=== PATIENT | female | born 1940 | race African-American/Black ===

== ENCOUNTER → 2016-09-09 | Outpatient (CLI) | payer OTHER ==
[~2016-09-09] MED LIST: CLOBETASOL EMOL15 GM TP; HYDROCHLOROTHIA25 M2 PO; LEVOTHYROXIN0.075 MG PO; LOSARTAN POTAS100 MG PO; TOPROL XL50 MG PO
--- NOTE | ~2016-09-09 | 2DMMODE ---
[facility] I AND [employer] [address] 2 D/M-MODE ECHOCARDIOGRAM Name: ALEKSANDRA LAWRENCE Room #: REG CL [facility]#: [id number] Admission: 09/09/16 Attend Phys: Keven Snyder Discharge: Date of : 44 Date of Service: 09/09/16 1119 Report #: [id number] THIS REPORT FOR: //name// Transthoracic Echocardiography Ordering physician: Polly Ferguson Referring physician: Polly Ferguson Hospice Coordinator: Lexus Plascencia Indications/History: Pulmonary HTN BP: 162 / HR: 51bpm Height: 64in Weight: 134.7lb 90 Study data: M-mode, complete 2D, complete spectral Doppler, and color Doppler. Location: Echo laboratory. Routine. Image quality was adequate. 2D measurements Normal Normal LVID ED 52mm 36-57 IVS ED 11.3mm 6-11 LVID ES 24.2mm 23-40 LVPW ED 10.1mm 6-11 LA volume 32ml/m2 16-28 AoRoot diam 30.4mm 21-37 index ED LVOT diameter 20mm 18-23 Findings: Left ventricle: The cavity size was normal. Wall thickness was at the upper limits of normal. Systolic function was normal. The estimated ejection fraction was in the range of 60% to 65%. Wall motion was normal. Right ventricle: The cavity size was normal. Systolic function was normal. Right atrium: The atrium was normal in size. Left atrium: The atrium was mildly dilated. Volume index: 32ml/m2 (S). Aortic valve: Mildly thickened leaflets. Doppler: There was no stenosis. No regurgitation. Peak velocity: 153.8cm/s (S). [address] [address] 2 D/M-MODE ECHOCARDIOGRAM Name: ALEKSANDRA LAWRENCE Room #: REG M.R.#: [id number] Admission: 09/09/16 Attend Phys: GriffinStormy Keven Fiore Discharge: Date of : 44 Date of Service: 09/09/16 1119 Report #: [id number] Mitral valve: Structurally normal valve. Doppler: There was no evidence for stenosis. No regurgitation. Peak E-wave velocity: 59.4cm/s. Peak A-wave velocity: 74cm/s. Tricuspid valve: Structurally normal valve. Doppler: There was no evidence for stenosis. Mild regurgitation. Regurgitant peak velocity: 266.8cm/s. Peak RV-RA gradient: 28mm Hg (S). Pulmonic valve: Structurally normal valve. Doppler: There was no evidence for stenosis. Mild to moderate regurgitation. Pericardium: There was no pericardial effusion. Aorta: Aortic root: The aortic root was normal in size. Pulmonary artery: Systolic pressure was estimated to be 33mm Hg. Diastolic function: Doppler parameters are consistent with abnormal left ventricular relaxation (grade 1 diastolic dysfunction). Systemic veins: Inferior vena cava: The vessel was normal in size; the respirophasic diameter changes were in the normal range (= 50%). Conclusions 1. Left ventricle: The cavity size was normal. Wall thickness was at the upper limits of normal. Systolic function was normal. The estimated ejection fraction was in the range of 60% to 65%. Wall motion was normal. Doppler parameters are consistent with abnormal left ventricular relaxation (grade 1 diastolic dysfunction). 2. Aortic valve: Mildly thickened leaflets. There was no stenosis. No regurgitation. 3. Mitral valve: Structurally normal valve. No regurgitation. 4. Pulmonary arteries: Systolic pressure was estimated to be 33mm Hg. 5. Pericardium, extracardiac: There was no pericardial effusion. <ELECTRONICALLY SIGNED> By: Harry Ga MD, FACC 09/09/16 1239 1119 1239 Harry Ga MD, FAC /deena
== END ==
LOC: CV 09-08 09:44
DX: I27.2 Other secondary pulmonary hypertension (principal)

== ENCOUNTER → 2017-02-15 | Outpatient (CLI) | payer OTHER | LOC: CAT 02-11 10:01 | DX: J47.9 Bronchiectasis, uncomplicated (principal); J84.10 Pulmonary fibrosis, unspecified; R91.8 Other nonspecific abnormal finding of lung field ==

== ENCOUNTER 2017-06-04 04:28 | Emergency (ER) | payer OTHER ==
[~2017-06-04] VITALS: Ht 165.1 cm; Wt 61.2 kg
--- NOTE | ~2017-06-04 | EKG ---
[address] [address] ELECTROCARDIOGRAM REPORT Name: NOAH LAWRENCENITA Room #: DEP Chan#: [id number] Admission: 06/04/17 Attend Phys: Discharge: 06/04/17 Date of : 44 Report #: [id number] THIS REPORT FOR: //name// [facility] ED Test Date: 2017-06-04 Test Time: 04:52:57 Pat Name: ALEKSANDRA LAWRENCE Department: Room: Gender: F Gis Manager: : 1940 Requested By: Ronnie Lynch Order Number: [id number] MD: Cristo Napier Measurements Intervals [place] Rate: 50 P: 25 MS: 213 QRS: 8 QRSD: 106 T: 56 QT: 444 QTc: 405 Interpretive Statements Sinus rhythm Borderline prolonged MS interval Left atrial enlargement Left ventricular hypertrophy No previous ECG available for comparison Electronically Signed On 06-04-2017 13:29:45 CDT by Cristo Napier [email or web address] <ELECTRONICALLY SIGNED> By: Cristo Napier MD 06/04/17 1329 0452 0452 Cristo Napier MD /NOE
[2017-06-04] MEDS ORDERED: CARDIZEM CD240 MG PO (04:37)
[2017-06-04] MEDS ORDERED: CLONIDINE0.1 PO (04:38)
[2017-06-04 04:56] LABS: HEMATOCRIT 42.1 % (37.0-47.0); HEMOGLOBIN 14.1 gm/dL (12.0-15.0); MCH 30.3 pg (26.0-34.0); MCHC 33.4 g/dL (28.0-37.0); MCV 90.6 fL (80.0-100.0); RBC 4.65 mil/uL (4.20-5.00); RDW 14.1 % (10.5-14.5); WBC 6.3 thou/uL (4.0-11.0)
[2017-06-04 05:11] LABS: ANION GAP 7 mmol/L (7-16); BUN 16 mg/dL (7-18); CALCIUM 10.3 mg/dL (8.5-10.1); CHLORIDE 100 mmol/L (98-107); CO2 30 mmol/L (21-32); CREATININE 0.7 mg/dL (0.6-1.0); GLUCOSE 105 mg/dL (74-106); POTASSIUM 3.3 mmol/L (3.5-5.1); SODIUM 137 mmol/L (136-145)
[2017-06-04 05:20] LABS: TROPONIN-I < 0.04 ng/mL (<0.04-0.07)
[2017-06-04 05:27] LABS: URINE BILIRUBIN NEGATIVE (Negative); URINE BLOOD 1+ (Negative); URINE COLOR YELLOW; URINE GLUCOSE-RANDOM* NEGATIVE (Negative); URINE KETONES NEGATIVE (Negative); URINE LEUKOCYTES-REFLEX NEGATIVE (Negative); URINE PROTEIN (DIPSTICK) NEGATIVE (Negative); URINE UROBILINOGEN 0.2 E.U./dl (0.2-1.0)
[2017-06-04 05:43] LABS: SQUAMOUS >10 Many /LPF (0-3)
[2017-06-04 05:44] LABS: CASTS None Seen /LPF (None Seen); CRYSTALS None Seen /LPF (None Seen); URINE RBC 0-2 Rare /HPF (0-2); URINE WBC-REFLEX 0-5 Rare /HPF (0-5)
[2017-06-04 05:52] VITALS: BP 179/87
== END 2017-06-04 05:45 | disposition home or self-care (01) ==
LOC: ER 04:28
PROVIDERS: Emergency Medicine
DX: I10 Essential (primary) hypertension (principal); E03.9 Hypothyroidism, unspecified

== ENCOUNTER 2019-03-12 06:54 | Emergency (ER) | payer OTHER ==
[~2019-03-12] VITALS: Ht 162.6 cm; Wt 61.2 kg
[~2019-03-12 06:54] MED LIST changes: +CARDIZEM CD240 MG PO; +CLONIDINE0.1 PO
[2019-03-12 07:39] LABS: URINE BILIRUBIN NEGATIVE (Negative); URINE BLOOD 1+ (Negative); URINE CLARITY CLEAR; URINE COLOR YELLOW; URINE GLUCOSE-RANDOM* NEGATIVE (Negative); URINE KETONES NEGATIVE (Negative); URINE LEUKOCYTES-REFLEX NEGATIVE (Negative); URINE NITRITE-REFLEX NEGATIVE (Negative); URINE PROTEIN (DIPSTICK) NEGATIVE (Negative); URINE UROBILINOGEN 0.2 E.U./dl (0.2-1.0)
[2019-03-12 07:52] LABS: SQUAMOUS >10 Many /LPF (0-3)
[2019-03-12 07:53] LABS: BACTERIA-REFLEX 1-9 Few /HPF (None Seen); CASTS None Seen /LPF (None Seen); CRYSTALS None Seen /LPF (None Seen); URINE RBC 0-2 Rare /HPF (0-2); URINE WBC-REFLEX 0-5 Rare /HPF (0-5)
[2019-03-12 07:59] LABS: ABSOLUTE NEUTROPHILS 4.7 thou/uL (1.4-8.2); BASOPHILS 1.6 % (0.0-2.0); EOSINOPHILS 1.7 % (0.0-3.0); HEMATOCRIT 40.7 % (37.0-47.0); HEMOGLOBIN 13.6 gm/dL (12.0-15.0); LYMPHOCYTES 21.4 % (24.0-44.0); MCH 30.8 pg (26.0-34.0); MCHC 33.4 g/dL (28.0-37.0); MCV 92.2 fL (80.0-100.0); PLATELET COUNT 307 thou/uL (150-400); POLYS 66.3 % (36.0-66.0); RBC 4.41 mil/uL (4.20-5.00); RDW 14.4 % (10.5-14.5); WBC 7.2 thou/uL (4.0-11.0)
[2019-03-12 08:04] LABS: CALCIUM 7.9 mg/dL (8.5-10.1); CREATININE 0.7 mg/dL (0.6-1.0); POTASSIUM 3.4 mmol/L (3.5-5.1)
[2019-03-12 08:10] LABS: ALBUMIN 3.7 g/dL (3.4-5.0); TOTAL BILIRUBIN 0.7 mg/dL (<0.1-1.0); TOTAL PROTEIN 8.2 g/dL (6.4-8.2)
[2019-03-12 08:32] VITALS: BP 153/84
--- NOTE | 2019-03-12 19:54 | EKG ---
[place] [address] [facility] [place] [address] ELECTROCARDIOGRAM REPORT Name: NOAH LAWRENCENITA Room #: DEP MONIQUE Giles#: [id number] ������������������ Admission: 03/12/19 ������������������ Attend Phys: Discharge: 03/12/19 ������������������ Date of : 44 Report #: [id number] ����������������������������������������������������������������� [id number] THIS REPORT FOR: //name// [facility] ED Test Date: 2019-03-12 Test Time: 08:15:57 Pat Name: ALEKSANDRA LAWRENCE Department: Room: Gender: F Informaticist: alisa : 1940 Requested By: Rohan Ureña Order Number: [id number] MD: Cristo Napier Measurements Intervals [place] Rate: 47 P: 41 OK: 204 QRS: -10 QRSD: 111 T: 25 QT: 433 QTc: 383 Interpretive Statements Sinus bradycardia Probable left atrial enlargement RSR' in V1 or V2, probably normal variant Left ventricular hypertrophy Compared to ECG 06/04/2017 04:52:57 RSR' in V1 or V2 now present Sinus rhythm no longer present Electronically Signed On 03-12-2019 19:54:20 CDT by Cristo Napier [email or web address] ��������������������������������������������� <ELECTRONICALLY SIGNED> ���������������������������������������� By: Cristo Napier MD ��������������������������������������������� 03/12/194 4 4 Cristo Napier MD /EPI
== END 2019-03-12 08:32 | disposition home or self-care (01) ==
LOC: ER 06:54
PROVIDERS: Emergency Medicine
DX: I10 Essential (primary) hypertension (principal); E03.9 Hypothyroidism, unspecified

== ENCOUNTER → 2019-06-12 | Outpatient (CLI) | payer OTHER | LOC: RAD 01:30 | DX: Z12.31 Encounter for screening mammogram for malignant neoplasm of breast (principal) ==

== ENCOUNTER → 2019-09-15 | Outpatient (CLI) | payer OTHER ==
[~2019-09-15] VITALS: Ht 162.6 cm; Wt 61.2 kg
[~2019-09-15] MED LIST changes: +CARDIZEM CD240 M1 PO; -CARDIZEM CD240 MG PO; -CLOBETASOL EMOL15 GM TP; +CLOBETASOL EMOL15 GM VAG; +CLONIDINE HCL0.2 M2 PO; -CLONIDINE0.1 PO; +KLOR-CON 10 ER10 MEQ PO; -LEVOTHYROXIN0.075 MG PO; +SYNTHROID75 MCG PO; +WOMEN'S 50 PLU1 EACH PO
--- NOTE | 2019-09-15 17:40 | P ---
[facility] [place] [address] PROCEDURE REPORT Name: ALEKSANDRA LAWRENCE Room #: REG [facility].#: [id number] Admission: 09/15/19 Attend Phys: Zackary Dias MD Discharge: Date of : 44 Report #: [id number] THIS REPORT FOR: //name// CC: Abhilash Dias DATE OF SERVICE: 09/15/2019 OUTPATIENT COLONOSCOPY REPORT BRIEF HISTORY: The patient is a 79-year-old woman with a history of colon polyps. She reports she recently had a positive Cologuard and presents for colonoscopy due to positive Cologuard. PREOPERATIVE DIAGNOSES: High risk screening due to positive Cologuard and history of colon polyps. POSTOPERATIVE DIAGNOSES: 1. A 4-5 mm polyp, proximal ascending colon. 2. Small internal hemorrhoids. MEDICATIONS: Deep sedation with propofol per anesthesia. SPECIMENS: Polyp from proximal ascending colon. ESTIMATED BLOOD LOSS: 3 mL. PROCEDURE: Colonoscopy to cecum and terminal ileum with biopsy. FINDINGS: Prior to propofol sedation, procedure of colonoscopy discussed with the patient as well as potential risks and its complications. She indicates she understands and desires to proceed. DESCRIPTION OF PROCEDURE: With the patient in left lateral decubitus position, digital examination was completed, which revealed no abnormalities. Subsequently, the Olympus video colonoscope was introduced in the rectum, advanced under direct vision to the cecum. Done with minimal difficulty. Cecum was identified by the ileocecal valve and the appendiceal orifice. I was able to visualize the distal segment of terminal ileum, which was inspected and noted to be unremarkable. At that point, the scope was slowly withdrawn and careful circumferential views obtained including retroflexion of the scope in the ascending colon. Upon slow withdrawal of the scope, the prep was noted to be limited in some areas. We irrigated extensively and suctioned and overall obtained a good prep after cleanup. The mucosa was within normal limits, normal vascular pattern, normal light reflex. No abnormalities were noted until the [facility] [address] [place] [address] PROCEDURE REPORT Name: ALEKSANDRA LAWRENCE Room #: REG [facility].#: [id number] Admission: 09/15/19 Attend Phys: Zackary Dias MD Discharge: Date of : 44 Report #: [id number] proximal ascending colon was reached, at which point a 4-5 mm polyp was seen and removed with biopsy forceps. Scope was further withdrawn and no additional neoplastic lesions were seen. The remainder of the exam was unremarkable, down to the rectum. However, upon retroflexion, small hemorrhoids were seen. The scope was withdrawn. The patient tolerated the procedure well. CONDITION OF THE PATIENT UPON DISCHARGE: Following procedure, the patient drowsy, aroused, conversant and will be discharged home when fully ambulatory. INSTRUCTIONS TO THE PATIENT AND FAMILY AT THE TIME OF DISCHARGE: One small polyp removed as described above. We will follow up on the path. It does look like an adenoma. In view of her history of polyps and finding of polyps today, I suggest return in 5 years for high risk screening colonoscopy. Since she has had colon polyps, Cologuard is not an approved screening method due to her history of colon polyps. Last colonoscopy was 5 years ago. Withdrawal time from the cecum including cleanup was 19 minutes and 3 seconds. <ELECTRONICALLY SIGNED> By: Zackary Dias MD 09/15/19 1740 1017 1415 Zackary Dias MD /nt
--- NOTE | 2019-09-18 16:07 | PATH ---
[facility] [address] [place] [address] PATHOLOGY RPT PROCEDURE Name: ALEKSANDRA LAWRENCE Room #: REG [facility]..#: [id number] Admission: 09/15/19 Date of : 44 Discharge: Report #: [id number] Path Case #: [id number] [facility] Accession Number: [id number] . 01 Material submitted: . colon - POLYP AT ASCENDING COLON. Modifiers: ascending . 01 Clinical history: . Blood in stool, history of polyps. . 02 Diagnosis: Polyp, ascending colon, endoscopic biopsy: - Tubular adenoma. - Negative for high-grade dysplasia. (IUV:pit 09/18/2019) QTP 09/18/2019 1345 Local . 02 Electronically signed: . Silvana Crawford MD, Pathologist NPI- [id number] . 01 Gross description: . Received in formalin labeled "Hishaw, Georgann, polyp at ascending" is a 0.4 x 0.4 x 0.1 cm aggregate of lawrence-brown mucosa fragments. The specimen is submitted in A1. ([facility] [place]; 09/17/2019) [facility] 09/17/2019 1119 Local . 02 Pathologist provided ICD-10: D12.2 . 02 CPT . 906465 Specimen Comment: A courtesy copy of this report has been sent to [phone], [phone]- Specimen Comment: [id number] Specimen Comment: Report sent to and Performed at: [address], [place] [id number] MD Eliazar Cabello MD Phone: [phone] Performed at: [address] [id number] MD Silvana Crawford MD Phone: [phone]
== END | disposition home or self-care (01) ==
LOC: GI 09-08 12:23
DX: R19.5 Other fecal abnormalities (principal); D12.2 Benign neoplasm of ascending colon; K64.8 Other hemorrhoids; I10 Essential (primary) hypertension; E03.9 Hypothyroidism, unspecified; Z98.890 Other specified postprocedural states; Z86.010 Personal history of colon polyps; Z87.01 Personal history of pneumonia (recurrent); Z79.899 Other long term (current) drug therapy
CPT/HCPCS: 62110; 62900

== ENCOUNTER → 2020-12-16 | Outpatient (CLI) | payer OTHER | LOC: BC 09:45 | PROVIDERS: ATTEND Obstetrics & Gynecology | DX: Z12.31 Encounter for screening mammogram for malignant neoplasm of breast (principal) ==

== ENCOUNTER 2021-08-30 22:33 | Emergency (ER) | payer OTHER ==
[~2021-08-30] VITALS: Ht 162.6 cm; Wt 60.3 kg
[2021-08-30 23:41] LABS: ABSOLUTE NEUTROPHILS 4.1 thou/uL (1.4-8.2); BASOPHILS 1.3 % (0.0-2.0); HEMATOCRIT 39.1 % (37.0-47.0); HEMOGLOBIN 12.8 gm/dL (12.0-15.0); LYMPHOCYTES 23.6 % (24.0-44.0); MCH 30.9 pg (26.0-34.0); MCHC 32.8 g/dL (28.0-37.0); MCV 94.1 fL (80.0-100.0); MONOCYTES 10.8 % (1.0-8.0); PLATELET COUNT 314 thou/uL (150-400); POLYS 63.3 % (36.0-66.0); RBC 4.15 mil/uL (4.20-5.00); RDW 14.4 % (10.5-14.5); WBC 6.4 thou/uL (4.0-11.0)
[2021-08-30] MEDS ORDERED: COZAAR 25 MG TA25 M2 PO (23:48)
[2021-08-30 23:59] LABS: CALCIUM 9.2 mg/dL (8.5-10.1); CREATININE 0.6 mg/dL (0.6-1.0); POTASSIUM 3.5 mmol/L (3.5-5.1)
[2021-08-31 00:48] VITALS: BP 137/83
== END 2021-08-31 00:48 | disposition home or self-care (01) ==
LOC: ER 22:33
PROVIDERS: Emergency Medicine
DX: I10 Essential (primary) hypertension (principal); E03.9 Hypothyroidism, unspecified; Z90.89 Acquired absence of other organs; Z98.890 Other specified postprocedural states; Z79.899 Other long term (current) drug therapy

== ENCOUNTER 2021-09-07 10:08 | Emergency (ER) | payer OTHER ==
[~2021-09-07] VITALS: Ht 162.6 cm; Wt 60.3 kg
--- NOTE | ~2021-09-07 | EMS ---
[address] [address] EMS Patient Care Report Name: ALEKSANDRA LAWRENCE Room #: [facility] MONIQUE Giles#: [id number] Admission: 09/07/21 Attend Phys: Discharge: 09/07/21 Date of : 44 Report #: [id number] THIS REPORT FOR: //name// Report Transmitted: 09/09/2021 10:33 EMS Care Summary [place], [place]/[facility] Incident [id number] @ 09/07/2021 09:31 Incident Location [address] [place] [address] Patient ALEKSANDRA LAWRENCE Female, 81 Years 1940 Patient Address Patient History Hypertension (HTN),Hypothyroidism, Patient Allergies No known allergies, Patient Medications Losartan, Hydrochlorothiazide (Hctz), Clonidine, Diltiazem, Levothyroxine, Chief Complaint HTN Disposition Transported No Lights/[place] Dispatch Reason Sick Person Transported To [facility] Narrative UPON ARRIVAL WE FOUND OUR ANXIOUS 81 YEAR OLD FEMALE PATIENT, WITH A HX OF HTN, SITTING IN THE FRONT ROOM OF A RESIDENCE COMPLAINING OF POORLY CONTROLLED HTN WITH INTERMITTENT PARESTHESIA IN ALL 4 EXTREMITIES X 1 WEEK DESPITE COMPLIANCE WITH HER PRESCRIBED BP MEDS. THE PATIENT STATES SHE WAS SEEN AT THE [facility] ER LAST WEEKEND FOR THE SAME COMPLAINT AND FOLLOWED UP WITH HER PCP AND HAD HER MEDS ADJUSTED. HOWEVER, THE PATIENT'S BP HAS NOT IMPROVED WITH THE NEW MED [address] [address] EMS Patient Care Report Name: ALEKSANDRA LAWRENCE Room #: [facility]..#: [id number] Admission: 09/07/21 Attend Phys: Discharge: 09/07/21 Date of : 44 Report #: [id number] REGIMEN AND SHE IS VERY CONCENED THAT SHE MIGHT HAVE A CVA OR RENAL FAILURE. THE PATIENT DENIES ANY H/A, VISUAL DISTURBANCES, EXTREMITY WEAKNESS, FACIAL DROOP, OR SLURRED SPEECH. THE PATIENT STATES SHE TEXTED HER PCP AND HE RECOMMENDED SHE CALL 911 AND RETURN TO THE [facility] ER FOR REEVALUATION. Initial Vitals @09:46P: 92,R: 18,BP: 190/110,Pain: 0/10,GCS: 15,SpO2: 100,Revised Trauma: 12,TX Suspected: false @10:05P: 88,R: 18,BP: 194/108,Pain: 0/10,GCS: 15,SpO2: 100,Revised Trauma: 12, Assessments @09:39MENTAL:Other,Event Oriented,Time Oriented,Place Oriented,Person Oriented,SKIN:HEENT:Eyes: Right Pupil: 4-mm,Eyes: Left Pupil: 4-mm,Head/Face: No Abnormalities,Neck/Airway: No Abnormalities,LUNG SOUNDS:General: No Abnormalities,ABDOMEN:General: No Abnormalities,PELVIS//GI:No Abnormalities,EXTREMITIES:Left Arm: No Abnormalities,Right Arm: No Abnormalities,Left Leg: No Abnormalities,Right Leg: No Abnormalities,PULSE:Radial: 2+ Normal,NEURO:Tremors, Impression Hypertension Procedures @09:39 ALS Assessment Response: UnchangedSucceeded @09:46 3-Lead ECG Response: UnchangedSucceeded @09:49 IV Therapy - Saline Lock 0cc (20 ga) Site: Forearm-Left Response: UnchangedSucceeded Timeline 09:29,Call Received 09:29,Dispatch Notified 09:31,Dispatched 09:31,En Route 09:37,On Scene 09:39,At Patient 09:39,ALS Assessment,Response: UnchangedSucceeded, 09:46,3-Lead ECG,Response: UnchangedSucceeded, 09:46,BP: 190/110 M,PULSE: 92,RR: 18 R,SPO2: 100 Ox,ETCO2: ,BG: ,PAIN: 0,GCS: 15, 09:47,Depart Scene 09:49,IV Therapy - Saline Lock 0cc 20 ga Site: Forearm-Left,Response: UnchangedSucceeded, 10:05,At Destination 10:05,BP: 194/108 M,PULSE: 88,RR: 18 R,SPO2: 100 Ox,ETCO2: ,BG: ,PAIN: 0,GCS: 15, [facility] [address] [place] [address] EMS Patient Care Report Name: NOAH LAWRENCENITA Room #: DEP MONIQUE Giles#: [id number] Admission: 09/07/21 Attend Phys: Discharge: 09/07/21 Date of : 44 Report #: [id number] 10:19,Call Closed Disclaimer v1.1 Copyright 2021 [employer] This EMS Care Summary contains data elements from the applicable legal record (which may be displayed differently). It is designed to provide pertinent information for the following purposes: continuity of care, clinical quality, and state data reporting. The complete legal record is available to ED staff and administrators of the receiving hospital in [employer] Patient Tracker. All data is provided "as is."
[~2021-09-07 10:08] MED LIST changes: +COZAAR 25 MG TA25 M2 PO
[2021-09-07 11:26] LABS: ABSOLUTE NEUTROPHILS 6.9 thou/uL (1.4-8.2); BASOPHILS 0.9 % (0.0-2.0); EOSINOPHILS 0.6 % (0.0-3.0); HEMATOCRIT 45.3 % (37.0-47.0); HEMOGLOBIN 14.9 gm/dL (12.0-15.0); LYMPHOCYTES 17.6 % (24.0-44.0); MCH 31.2 pg (26.0-34.0); MCHC 32.9 g/dL (28.0-37.0); MONOCYTES 7.9 % (1.0-8.0); PLATELET COUNT 377 thou/uL (150-400); RBC 4.77 mil/uL (4.20-5.00); RDW 14.9 % (10.5-14.5); WBC 9.5 thou/uL (4.0-11.0)
[2021-09-07 12:14] LABS: CALCIUM 9.8 mg/dL (8.5-10.1); CREATININE 0.8 mg/dL (0.6-1.0); POTASSIUM 3.6 mmol/L (3.5-5.1)
[2021-09-07 12:24] LABS: TOTAL BILIRUBIN 0.5 mg/dL (0.2-1.0); TOTAL PROTEIN 8.7 g/dL (6.4-8.2)
[2021-09-07 12:34] VITALS: BP 159/85
--- NOTE | 2021-09-08 07:51 | EKG ---
[place] [address] [address] [facility] [place] [address] ELECTROCARDIOGRAM REPORT Name: ALEKSANDRA LAWRENCE Room #: DEP Chan#: [id number] Admission: 09/07/21 Attend Phys: Discharge: 09/07/21 Date of : 44 Report #: [id number] [facility] ED Test Date: 2021-09-07 Test Time: 10:57:12 Pat Name: ALEKSANDRA LAWRENCE Department: Room: Gender: F Web Editor: noy martinez : 1940 Requested By: Oscar Mckeon Order Number: [id number] MD: Anil Guerrero Measurements Intervals [place] Rate: 75 P: 51 CO: 183 QRS: -2 QRSD: 95 T: 55 QT: 389 QTc: 435 Interpretive Statements Sinus rhythm Atrial premature complex Probable left atrial enlargement RSR' in V1 or V2, probably normal variant Left ventricular hypertrophy Borderline T abnormalities, lateral leads Baseline wander in lead(s) V2 Compared to ECG 03/12/2019 08:15:57 Atrial premature complex(es) now present T-wave abnormality now present Sinus bradycardia no longer present Electronically Signed On 09-08-2021 7:51:10 APPLICATIONS ENGINEERING MANAGER by Anil Guerrero [email or web address] <ELECTRONICALLY SIGNED> By: Anil Guerrero MD, FACC 09/08/21 0751 1057 1057 Anil Guerrero MD, FAC /EPI
== END 2021-09-07 12:34 | disposition home or self-care (01) ==
LOC: ER 10:08
PROVIDERS: Emergency Medicine
DX: I10 Essential (primary) hypertension (principal); E03.9 Hypothyroidism, unspecified; Z90.89 Acquired absence of other organs; Z79.899 Other long term (current) drug therapy